=== PATIENT | male | born 1995 | race Two or more races ===

== ENCOUNTER 2017-10-29 21:30 | Emergency (ER) | payer BC, OTHER ==
[2017-10-29] MEDS: LIDOCAINE 2% MDV 20 ML VIAL SC ×2 (23:00)
[2017-10-29] MEDS: CEPHALEXIN 500 MG CAP PO ×2 (23:15)
== END 2017-10-29 23:40 | disposition home or self-care (01) ==
LOC: M ED 21:30
DX: S60.451A Superficial foreign body of left index finger, initial encounter (principal); X58.XXXA Exposure to other specified factors, initial encounter; Y92.099 Unspecified place in other non-institutional residence as the place of occurrence of the external cause; Y93.9 Activity, unspecified; Y99.9 Unspecified external cause status
CPT/HCPCS: 10120

== ENCOUNTER 2020-10-11 14:53 | Emergency (ER) | payer BC ==
[~2020-10-11] VITALS: Ht 180.3 cm; Wt 106.6 kg
[~2020-10-11 14:53] MED LIST: KEFL500C17 PO
[2020-10-11] MEDS ORDERED: LIDOCAINE W/EPINEPHRINE 1% 20ML VIAL SC ONE (16:05)
[2020-10-11] MEDS ORDERED: BACT800T5 PO (17:12)
[2020-10-11 17:21] VITALS: BP 121/62
[2020-10-11] MEDS ORDERED: BACTRIM 160MG/800MG DS TAB PO ONE (17:55)
== END 2020-10-11 18:08 | disposition home or self-care (01) ==
LOC: M ED 14:53
DX: L02.214 Cutaneous abscess of groin (principal); F17.200 Nicotine dependence, unspecified, uncomplicated

== ENCOUNTER → 2021-08-22 | Outpatient (CLI) | payer BC ==
[~2021-08-22] MED LIST changes: +BACT800T5 PO; +IBUP-1114 PO; +OMEP40CA5 PO
== END ==
LOC: M LABSMTC 09:06
PROVIDERS: ATTEND Anesthesiology
DX: Z01.812 Encounter for preprocedural laboratory examination (principal); Z20.822 Contact with and (suspected) exposure to COVID-19

== ENCOUNTER 2021-08-27 07:30 | Day surgery (SDC) | payer BC ==
[~2021-08-27] VITALS: Ht 180.3 cm; Wt 113.4 kg
[~2021-08-27 07:30] MED LIST changes: +LIDOCAINE 2% 100MG/5ML SDV (FOR ANES.) As Ordered ONE; +NS 1,000 ML IV ONE; +fentaNYL 100 MCG/2 ML INJECTION As Ordered ONE; +propofoL 500 MG/50 ML VIAL As Ordered ONE
[2021-08-27 09:30] VITALS: BP 125/67
== END 2021-08-27 09:36 | disposition home or self-care (01) ==
LOC: M OPP 07:30
PROVIDERS: ATTEND Internal Medicine Gastroenterology
DX: R19.4 Change in bowel habit (principal); R12 Heartburn
CPT/HCPCS: 43239; 45380; 88305; J3010

== ENCOUNTER 2025-01-23 15:28 | Emergency (ER) | payer BC ==
[~2025-01-23] VITALS: Ht 180.3 cm; Wt 111.0 kg
[~2025-01-23 15:28] MED LIST changes: -LIDOCAINE 2% 100MG/5ML SDV (FOR ANES.) As Ordered ONE; -NS 1,000 ML IV ONE; -fentaNYL 100 MCG/2 ML INJECTION As Ordered ONE; -propofoL 500 MG/50 ML VIAL As Ordered ONE
[2025-01-23] MEDS ORDERED: EPIP0.3I2 IM (18:08)
[2025-01-23 18:12] VITALS: BP 113/73; TEMP 96.7; O2SAT 97
== END 2025-01-23 18:20 | disposition home or self-care (01) ==
LOC: M ED 15:28
DX: T63.441A Toxic effect of venom of bees, accidental (unintentional), initial encounter (principal); J45.909 Unspecified asthma, uncomplicated; F10.10 Alcohol abuse, uncomplicated; Z91.030 Bee allergy status; Z79.899 Other long term (current) drug therapy